=== PATIENT | female | born 1990 | race Caucasian/White ===

== ENCOUNTER 2021-06-05 10:48 | Outpatient (REF) | payer OTHER, SELFPAY ==
--- NOTE | 2021-06-05 10:30 | PAPFT_PTH ---
PATIENT: Melanie Ge LOC: [facility]#:[id number] AGE/SX: 31/F ROOM: RE06/05/[address]: Vilma Rojo : 1990 BED: DIS: 06/05/2021 SPEC #: [id number] RECD: 06/05/21 18:33 STATUS: DREW REQ #: [id number] ANNA: 06/05/21 10:[address]: Vilma Rojo DEPT: [facility] Cytology RECD BY: Tigist Elliott ENTERED: 06/05/21 18:34 SP TYPE: PAPFT OTHR DR: Steve Galo Tissues: 1 - CX/ENDOCX FOR PAP SMEARS Procedures: PAP THIN PREP/[facility] Screening HPV DNA PROBE Comments: [id number]
== END 2021-06-05 10:49 | disposition home or self-care (01) ==
LOC: NCHCN 10:48
PROVIDERS: PCP Internal Medicine; Visit Provider Nurse Practitioner Family
DX: Z12.4 Encounter for screening for malignant neoplasm of cervix (principal); Z11.51 Encounter for screening for human papillomavirus (HPV)
CPT/HCPCS: 88142; 87624

== ENCOUNTER 2022-10-23 15:26 | Outpatient (REF) | payer OTHER, SELFPAY ==
[2022-10-25 11:29] LABS: Hep A Total Ab w Rflx IgM Positive (Negative)
[2022-10-25 13:51] LABS: Hep A Antibody IgM Negative (Negative)
== END 2022-10-23 15:27 | disposition home or self-care (01) ==
LOC: NCHCN 15:26
PROVIDERS: PCP Internal Medicine; Visit Provider Nurse Practitioner Family
DX: Z00.00 Encounter for general adult medical examination without abnormal findings (principal); Z01.84 Encounter for antibody response examination; Z11.59 Encounter for screening for other viral diseases
CPT/HCPCS: 86709

== ENCOUNTER 2024-06-05 14:23 | Outpatient (CLI) | payer OTHER, SELFPAY ==
[2024-06-05 13:02] LABS: D-Dimer 136 ng/mlFEU (<500)
--- OUTSIDE RECORDS SUMMARY | 2024-06-05 14:26 | XMS_ITS | Clinical Summary ---
Author Organization [facility] Address [address] [place] [address] Care Team Providers Care Lookback Coordinator Name Role Phone Unknown, Provider MD Primary Care Provider Unava ilable Social History Tobacco Use Types Packs/Day Years Used Date Smoking Tobacco: Never Assessed Comments Unknown Sex and Gender Information Value Date Recorded Sex Assigned at Not on file Legal Sex Female 9:13 EDT Gender Identity Not on file Sexual Orientation Not on file Plan of Treatment Health Maintenance Due Date Last Done Comments Hepatitis C Screen 1990 Hepatitis B Vaccine (1 of 3 - 19+ 3-dose series) 06/04 COVID-19 Vaccine (2023- season) 2024 Care Teams Lookback Coordinator Relationship Specialty Start Date End Date Unknown, Provider, PCP - General 08/30/15
--- OUTSIDE RECORDS SUMMARY | 2024-06-05 14:26 | XMS_ITS | Encounter Summary ---
Author Organization [facility] Address [address] [place] [address] Care Team Providers Care Flavor Extractor Name Role Phone Unknown, Provider Primary Care Provider Unava ilable Encounter Details Date Type Department Care Team (Latest Contact Info) Description 06/06/2021 Lab Requisition [facility] Pathology & Laboratory Medicine - [facility] [address] [place] [address] Vilma Rojo, BUGGY MAN [address] [facility] [address] [place] [address] Encounter for general adult medical examination with abnormal findings; Encounter for screening for malignant neoplasm of cervix; Encounter for gynecological examination (general) (routine) without abnormal findings Social History Tobacco Use Types Packs/Day Years Used Date Smoking Tobacco: Never Assessed Comments Unknown Sex and Gender Information Value Date Recorded Sex Assigned at Not on file Legal Sex Female 9:13 EDT Gender Identity Not on file Sexual Orientation Not on file documented as of this encounter Plan of Treatment Not on file documented as of this encounter Procedures Procedure Name Priority Date/Time Associated Diagnosis Comments PAP TEST Today 06/05/2021 10:30 EST Encounter for general adult medical examination with abnormal findings Encounter for screening for malignant neoplasm of cervix Encounter for gynecological examination (general) (routine) without abnormal findings HPV DNA DETECTION WITH GENOTYPING, PCR Today 06/05/2021 10:30 EST Encounter for general adult medical examination with abnormal findings Encounter for screening for malignant neoplasm of cervix Encounter for gynecological examination (general) (routine) without abnormal findings documented in this encounter Results * HUMAN PAPILLOMAVIRUS (HPV) DETECTION-HIGH RISK TYPES (06/05/2021 10:30 EST) HPV other High Risk types, PCR Negative Negative 06/14/2021 15:25 [facility] Comment:No E6 or E7 mRNA is detected from HPV types 16,18,31,33,35,39,45,51,52,56,58,59,66, and 68 by senior operations manager mediated amplification. Papanicolaou smear specimen (specimen) CERVIX UTERI STRUCTURE / Unknown 06/05/2021 10:30 EST 06/13/2021 12:12 EST us Vilma Rojo BUGGY MAN MICROBIOLOGY - GENERAL OR DERABLES Final Result [facility] [address] [place] [address] * PAP TEST (06/05/2021 10:30 EST) Specimens A. Cervix and/or Endocervix , ThinPrep Imaging System with Manual Evaluation 06/14/2021 15:25 [facility] Specimen Adequacy Satisfactory for Evaluation - transformation zone component present 06/14/2021 15:25 [facility] General Categorization Negative for intraepithelial lesion or malignancy 06/14/2021 15:25 [facility] Attestation . 06/14/2021 15:25 [facility] at 1525 Clinical History See below 06/14/19 22 15:25 [facility] HPV The result for the Human Papillomavirus (HPV) Detection-High Risk Types is Negative. No E6 or E7 mRNA is detected from HPV types 16,18,31,33,35,39 ,45,51,52,56,58,5 9,66, and 68 by senior operations manager mediated amplification.Eboni ting was performed on specimen [id number] and was resulted on 06/14/2021 1503 EST by REGINA, LAB INSTRUMENT RESULTS IN 06/14/2021 15:25 [facility] Performing Lab [facility] 06/14/2021 15:25 [facility] Scanned Images 06/14/2021 15:25 EST [facility] Papanicolaou smear specimen (specimen) CERVIX UTERI STRUCTURE / Unknown 06/05/2021 10:30 EST 06/06/2021 11:04 EST us Vilma Rojo BUGGY MAN PATHOLOGY ORDERABLES Aretha osmani Result [facility] [address] [place] [address] documented in this encounter Visit Diagnoses Diagnosis Encounter for general adult medical examination with abnormal findings Unspecified general medical examination Encounter for screening for malignant neoplasm of cervix Screening for malignant neoplasm of the cervix Encounter for gynecological examination (general) (routine) without abnormal findings documented in this encounter Care Teams Flavor Extractor Relationship Specialty Start Date End Date Unknown, Provider, PCP - General 08/30/15 documented as of this encounter
--- OUTSIDE RECORDS SUMMARY | 2024-06-05 14:26 | XMS_ITS | Referral Summary ---
Author Organization [facility] Address [address] [place] [address] Care Team Providers Care Residential Property Manager Name Role Phone Unknown, Provider MD Primary Care Provider Unava ilable Social History Tobacco Use Types Packs/Day Years Used Date Smoking Tobacco: Never Assessed Comments Unknown Sex and Gender Information Value Date Recorded Sex Assigned at Not on file Legal Sex Female 9:13 EDT Gender Identity Not on file Sexual Orientation Not on file Plan of Treatment Not on file Care Teams Residential Property Manager Relationship Specialty Start Date End Date Unknown, Provider, PCP - General 08/30/15
--- OUTSIDE RECORDS SUMMARY | 2024-06-05 14:26 | XMS_ITS | Encounter Summary ---
Author Organization [facility] Address [address] [place] [address] Care Team Providers Care Anode Machine Operator Name Role Phone Unknown, Provider Primary Care Provider Unava ilable Encounter Details Date Type Department Care Team (Late st Contact Info) Description 10/24/2022 Lab Requisition [facility] Pathology & Laboratory Medicine - [address] [address] Outr Resulting Lab, Provider Social History Tobacco Use Types Packs/Day Years [...] Procedure Name Priority Date/Time Associated Diagnosis Comments HEPATITIS A ANTIBODY IGM Today 10/23/2022 8:07 EDT HEPATITIS A TOTAL ANTIBODY W REFLEX Routine 10/23/2022 8:07 EDT documented in this encounter Results * HEPATITIS A ANTIBODY IGM (10/23/2022 8:07 EDT) Hepatitis A Antibody, IgM Negative Negative 10/25/2022 12:27 EDT [facility] Blood VENOUS BLOOD / Unknown 10/23/2022 8:07 EDT 10/24/2022 18:03 EDT Narrative [facility] - 10/25/2022 12:27 EDT The results of this assay can be falsely lowered due to the consumption of Biotin. us Provider Outr Resulting Lab CHEMISTRY & BLOOD GA S ORDERABLES Final Result Performing Organization Address [facility] Co de Phone Number [facility] [address] [place] [address] * (ABNORMAL) HEPATITIS A TOTAL ANTIBODY W REFLEX (10/23/2022 8:07 EDT) Hepatitis A Antibody, Total Positive(A ) Negative 10/25/2022 11:23 EDT [facility] Blood VENOUS BLOOD / Unknown 10/23/2022 8:07 EDT 10/24/2022 18:03 EDT Narrative [facility] - 10/25/2022 11:23 EDT The result of this assay can be falsely elevated (Positive) due to the consumption of Biotin. us Provider Outr Resulting Lab CHEMISTRY & BLOOD GA S ORDERABLES Final Result Performing Organization Address [facility] Co de Phone Number [facility] [address] [place] [address] documented in this encounter Visit Diagnoses Not on filedocumented in this encounter Care Teams Anode Machine Operator Relationship Specialty Start Date End Date Unknown, Provider, PCP - General 08/30/15 documented as of this encounter
--- OUTSIDE RECORDS SUMMARY | 2024-06-05 14:26 | XMS_ITS | Encounter Summary ---
Author Organization [facility] Address [address] [place] [address] Care Team Providers Care Pourer Off Name Role Phone Unknown, Provider Primary Care Provider Unava ilable Encounter Details Date Type Department Care Team (Late st Contact Info) Description 08/29/2015 Results Only [facility]- [facility] [place] [phone] Ronnie Nam, TEST MAN [address] [facility] [address] [place] [address] Social History Tobacco Use Types Packs/Day Years [...] Name Priority Date/Time Associated Diagnosis Comments PAP TEST- RESULT ONLY Routine 08/29/2015 0:00 EDT documented in this encounter Results * PAP TEST- RESULT ONLY (08/29/2015 0:00 EDT) Pathology Report: CYTOPATHOLOGY REPORT Reports generated via electronic interface contain original data; however they are lacking the format of the original report. Caution should be taken when reading/interpreti ng unformatted reports. Name: ? MELANIE GE ? Accession #: ? [id number] : ? 1990 (Age: 25) ??F ?Collect Date: ? 08/29/2015 Location: ? [facility] ? Receive Date: ? 08/30/2015 Provider: ?RONNIE NAM TEST MAN Copy to: ? Specimen/Source: ?Pap Test, Cervix/Endocervix, ThinPrep Imaging System with manual evaluation Last Menstrual Period: ? 08/15/2015 Hormonal/Contracep tive Status: ? None ? SPECIMEN ADEQUACY ? Satisfactory for Evaluation - transformation zone component absent GENERAL CATEGORIZATION ? Negative for Intraepithelial Lesion or Malignancy ? Document reviewed and electronically signed by: ? Christina Silveira [facility](AS[facility]) ? Report Date: ??09/02/2015 10:16 End of Report [facility] 08/29/2015 08/30/2015 us Ronnie Nam APRN PATHOLOGY ORDERABLES Aretha keen Result [facility] [address] [place] [address] documented in this encounter Visit Diagnoses Not on filedocumented in this encounter Care Teams Pourer Off Relationship Specialty Start Date End Date Unknown, Provider, PCP - General 08/30/15 documented as of this encounter
== END 2024-06-05 14:24 | disposition home or self-care (01) ==
LOC: LBO 14:24
PROVIDERS: PCP Internal Medicine; Visit Provider Nurse Practitioner Family
DX: R07.9 Chest pain, unspecified (principal)
CPT/HCPCS: 36415; 85379